=== PATIENT | male | born 1955 | race Caucasian/White ===

== ENCOUNTER 2021-04-30 10:05 | Inpatient (IN) | payer OTHER ==
[2021-04-30] MEDS ORDERED: MAGNESIUM CITRATE 300 ML BOTTLE PO PRN (10:29)
[2021-04-30] MEDS ORDERED: MENTHOL/PHENOL 1 EACH UD MM PRN (10:29)
[2021-04-30] MEDS ORDERED: METHOCARBAMOL 500 MG TABLET PO PRN (10:29)
[2021-04-30] MEDS ORDERED: BISMUTH SUBSALICYLATE 262 MG/15 ML BTL PO PRN (10:29)
[2021-04-30] MEDS ORDERED: MAG HYDROX/AL HYDROX/SIMETH 30 ML UNIT-DOSE CUP PO PRN (10:29)
[2021-04-30] MEDS ORDERED: NICOTINE 10 MG CARTRIDGE (INHALER) IH PRN (10:29)
[2021-04-30] MEDS ORDERED: ACETAMINOPHEN 325 MG TABLET (FP) PO PRN ×2 (10:29)
[2021-04-30] MEDS ORDERED: ONDANSETRON *ODT* 4 MG TABLET SL PRN (10:29)
[2021-04-30] MEDS ORDERED: MAGNESIUM HYDROX 2400MG/30ML ORAL SUSPENSION 30 ML CUP PO PRN (10:29)
[2021-04-30] MEDS ORDERED: IBUPROFEN 400 MG TABLET (FP) PO PRN (10:29)
[2021-04-30 10:33] VITALS: BMI 20.9
[2021-04-30] MEDS: NICOTINE 14 MG/24 HOURS TOPICAL PATCH TD SCH (12:17)
[2021-04-30] MEDS: PRENATAL VITAMINS W/ FOLIC ACID TABLET (FP) PO SCH (12:17)
[2021-04-30] MEDS ORDERED: hydrOXYzine PAMOATE 25 MG CAPSULE (FP) PO PRN (14:00)
[2021-04-30 15:31] LABS: HEMATOCRIT 41.6 % (35.4-49); HEMOGLOBIN 13.9 GM/dL (11.7-16.9); MCH 32.1 pg (25.7-33.7); MCHC 33.5 g/dl (32.0-35.9); MEAN CELL VOLUME 95.9 fl (80-96); MEAN PLT VOLUME 9.8 fl (7.5-11.1); PLATELET COUNT 208 10^3/uL (134-434); RBC 4.33 M/mm3 (4.00-5.60); RDW 14.1 % (11.9-15.9); WHITE BLOOD COUNT 4.8 K/mm3 (4.0-10.0)
[2021-04-30 15:42] LABS: ALBUMIN 3.8 g/dl (3.4-5.0); BLOOD UREA NITROGEN 10.1 mg/dL (7-18)
[2021-04-30 15:43] LABS: CALCIUM 9.1 mg/dL (8.5-10.1)
[2021-04-30 15:45] LABS: CREATININE 1.1 mg/dL (0.55-1.3)
[2021-04-30 15:47] LABS: BILIRUBIN,TOTAL 0.7 mg/dL (0.2-1); TOT PROT 7.1 g/dl (6.4-8.2)
[2021-04-30] MEDS ORDERED: MELATONIN 5 MG TABLETS PO SCH (22:00)
[2021-04-30] MEDS ORDERED: THIAMINE HCL 100 MG TABLET (FP) PO SCH (22:00)
[2021-05-01] MEDS: NICOTINE 14 MG/24 HOURS TOPICAL PATCH TD SCH (10:09)
[2021-05-01] MEDS: PRENATAL VITAMINS W/ FOLIC ACID TABLET (FP) PO SCH (10:09)
[2021-05-01 12:41] VITALS: BP 133/68; PULSE 52; TEMP 98.2
== END 2021-05-01 13:37 | disposition home or self-care (01) | DRG 774 ==
LOC: YASAS 10:05 → Y3N 11:35
PROVIDERS: ADMIT Allergy & Immunology; ATTEND Allergy & Immunology
PROC: HZ2ZZZZ Detoxification Services for Substance Abuse Treatment (ICD-10-PCS; principal; 2021-04-30)
DX: F10.230 Alcohol dependence with withdrawal, uncomplicated (principal); F14.20 Cocaine dependence, uncomplicated; F17.210 Nicotine dependence, cigarettes, uncomplicated; I10 Essential (primary) hypertension
CPT/HCPCS: 36415; 80053; 85027; 86780; C9803; U0003; U0005